=== PATIENT | male | born 1990 | race Caucasian/White ===

== ENCOUNTER 2017-10-27 03:41 | Emergency (ER) | payer OTHER, SELFPAY ==
[2017-10-27] MEDS ORDERED: Ibuprofen 800 MG TAB ONE (03:59)
--- NOTE | 2017-10-27 11:28 | RAD ---
RIGHT ELBOW: Date: 10/27/17 A total of 3 views are provided. There is a fracture through the neck of the radius subjacent to the head with minimal displacement. The remaining surrounding bones appear intact. IMPRESSION: Fracture of the radial neck. POS: HOME
== END 2017-10-27 04:25 | disposition home or self-care (01) ==
LOC: BURERS 03:41
DX: S52.124A Nondisplaced fracture of head of right radius, initial encounter for closed fracture (principal); F17.210 Nicotine dependence, cigarettes, uncomplicated; I10 Essential (primary) hypertension; W19.XXXA Unspecified fall, initial encounter